=== PATIENT | female | born 1965 | race American Indian/Alaskan Native ===

== ENCOUNTER 2023-10-12 12:21 | Emergency (ER) | payer OTHER, BC ==
[2023-10-12] MEDS ORDERED: Acetaminophen/HYDROcodone 325-5 MG Tab PO ONE (12:22)
[2023-10-12] MEDS: Ketorolac 30 MG/ML SDV IM ONE (12:43)
== END 2023-10-12 15:04 | disposition home or self-care (01) ==
LOC: FB.ED 12:21
DX: S20.211A Contusion of right front wall of thorax, initial encounter (principal); I10 Essential (primary) hypertension; E78.00 Pure hypercholesterolemia, unspecified; E11.9 Type 2 diabetes mellitus without complications; F17.210 Nicotine dependence, cigarettes, uncomplicated; W01.0XXA Fall on same level from slipping, tripping and stumbling without subsequent striking against object, initial encounter
CPT/HCPCS: 71101; 96372; 99283; A9270; J1885